=== PATIENT | male | born 1950 | race Two or more races ===

== ENCOUNTER 2020-05-17 09:40 | Day surgery (SDC) | payer OTHER | END 2020-05-17 13:40 | disposition home or self-care (01) | LOC: AMB-ENDOS 09:40 | PROVIDERS: ATTEND Surgery | DX: K62.89 Other specified diseases of anus and rectum (principal); Z20.828 Contact with and (suspected) exposure to other viral communicable diseases ==

== ENCOUNTER 2020-12-13 08:00 | Day surgery (SDC) | payer OTHER | END 2020-12-13 09:00 | disposition home or self-care (01) | LOC: AMB-ENDOS 08:00 | PROVIDERS: ATTEND Surgery | DX: K62.89 Other specified diseases of anus and rectum (principal); Z20.822 Contact with and (suspected) exposure to COVID-19 ==